=== PATIENT | female | born 1955 | race Caucasian/White ===

== ENCOUNTER 2017-12-25 16:30 | Outpatient (REF) | payer BC, SELFPAY ==
[2017-12-25 19:35] LABS: Anion Gap 8.3 mmol/L (3-11); BUN 11 mg/dL (7-18); CO2 30.7 mmol/L (21.0-32.0); CREATININE 0.66 mg/dL (0.55-1.02); Calcium 9.7 mg/dL (8.5-10.1); Chloride 100 mmol/L (98-107); Glucose 106 mg/dL (70-100); Sodium 139 mmol/L (136-145); TSH 4.41 uIU/mL (0.358-3.74)
== END 2017-12-25 16:50 ==
LOC: NCHCN 16:30
PROVIDERS: PCP Internal Medicine; Visit Provider Internal Medicine
DX: E04.2 Nontoxic multinodular goiter (principal); I10 Essential (primary) hypertension; E03.9 Hypothyroidism, unspecified; E11.9 Type 2 diabetes mellitus without complications; E66.9 Obesity, unspecified
CPT/HCPCS: 80048; 84443

== ENCOUNTER 2018-10-28 15:14 | Outpatient (REF) | payer BC, SELFPAY ==
--- NOTE | 2018-10-28 15:00 | PAPFT_PTH ---
PATIENT: Amanda Chavez LOC: [facility]#:[id number] AGE/SX: 63/F ROOM: RE10/28/[address]: Darin Kathleen : 1955 BED: DIS: 10/28/2018 SPEC #: [id number] RECD: 10/29/18 12:48 STATUS: SUZANNE CARSON #: [id number] AP: 10/28/18 15:[address]: Darin Kathleen DEPT: [facility] Cytology RECD BY: Lennie Redd Tissues: 1 - CX/ENDOCX FOR PAP SMEARS Procedures: PAP THIN PREP/[facility] Screening HPV DNA PROBE Comments: [id number]
== END 2018-10-28 15:34 ==
LOC: NCHCN 15:14
PROVIDERS: PCP Internal Medicine; Visit Provider Internal Medicine
DX: Z12.4 Encounter for screening for malignant neoplasm of cervix (principal); Z11.51 Encounter for screening for human papillomavirus (HPV); Z01.419 Encounter for gynecological examination (general) (routine) without abnormal findings
CPT/HCPCS: 88142; 87624

== ENCOUNTER 2019-03-12 08:49 | Outpatient (REF) | payer BC, SELFPAY ==
[2019-03-12 19:28] LABS: Abs Immature Grans 0.05 k/cumm (0.0-0.09); Absolute Basophil Count 0.05 k/cumm (0.0-0.2); Absolute Eosinophil Count 0.14 k/cumm (0.0-0.7); Absolute Lymphocyte Count 3.28 k/cumm (1.2-3.4); Absolute Monocyte Count 0.83 k/cumm (0.11-0.7); Absolute Neutrophil Count 7.18 k/cumm (1.2-6.7); Basophils % 0.4; Eosinophils % 1.2; HCT 46.5 % (36.0-46.0); HGB 15.7 g/dL (12.0-15.5); Immature Grans % 0.4; Lymphocytes % 28.5; Mean Corp. HGB Concentration 33.8 g/dL (32.0-36.0); Mean Corpuscular Hemoglobin 33.4 pg (27.0-33.0); Mean Corpuscular Volume 98.9 fL (80-95); Mean Platelet Volume 10.9 fL (8.0-11.0); Monocytes % 7.2; Neutrophils % 62.3; Platelet Count 290 x1000/uL (130-400); White Blood Cell Count 11.52 k/cumm (4.4-10.8)
[2019-03-12 19:46] LABS: Iron 101 ug/dL (50-170)
[2019-03-12 20:09] LABS: ESR 23 mm/hr (0-30)
[2019-03-12 20:16] LABS: ALT 27 U/L (14-59); AST 16 U/L (15-37); Alkaline Phosphatase 114 U/L (46-116); Anion Gap 11.6 mmol/L (3-11); BUN 13 mg/dL (7-18); Bilirubin, Total 0.4 mg/dL (0.2-1.0); CO2 27.4 mmol/L (21.0-32.0); CREATININE 0.75 mg/dL (0.55-1.02); Calcium 9.6 mg/dL (8.5-10.1); Chloride 99 mmol/L (98-107); Ferritin 131 ng/mL (8-252); Glucose 100 mg/dL (74-106); Magnesium 1.8 mg/dL (1.8-2.4); Potassium 4.2 mmol/L (3.5-5.1); Sodium 138 mmol/L (136-145); TSH (W/Ref FT4) 3.21 uIU/mL (0.36-3.74); Total Protein 7.7 g/dL (6.4-8.2)
[2019-03-16 10:27] LABS: Vitamin B12 445 pg/mL (211-911)
== END 2019-03-12 09:09 ==
LOC: NCHCN 08:49
PROVIDERS: PCP Internal Medicine; Visit Provider Physician Assistant
DX: I10 Essential (primary) hypertension (principal); E03.9 Hypothyroidism, unspecified; M62.81 Muscle weakness (generalized); M62.838 Other muscle spasm; D75.89 Other specified diseases of blood and blood-forming organs
CPT/HCPCS: 80053; 85652; 82607; 82728; 83540; 83735; 84443; 85025

== ENCOUNTER 2019-04-28 17:38 | Outpatient (REF) | payer BC, SELFPAY ==
[2019-04-28 20:44] LABS: COMMENT (LAB VIEW ONLY) 16.56 mg/dL
== END 2019-04-28 17:58 ==
LOC: NCHCN 17:38
PROVIDERS: PCP Internal Medicine; Visit Provider Internal Medicine
DX: E04.0 Nontoxic diffuse goiter (principal); E11.9 Type 2 diabetes mellitus without complications; I10 Essential (primary) hypertension; M16.11 Unilateral primary osteoarthritis, right hip; E66.9 Obesity, unspecified
CPT/HCPCS: 82043; 82570

== ENCOUNTER 2020-03-08 17:50 | Outpatient (REF) | payer BC, SELFPAY ==
[2020-03-08 20:54] LABS: ALT 33 U/L (14-59); Anion Gap 7.9 mmol/L (3-11); BUN 12 mg/dL (7-18); CO2 29.1 mmol/L (21.0-32.0); CREATININE 0.89 mg/dL (0.55-1.02); Calcium 9.5 mg/dL (8.5-10.1); Chloride 100 mmol/L (98-107); Glucose 135 mg/dL (74-106); LDL CHOLESTEROL 71 mg/dL (<100); Potassium 4.1 mmol/L (3.5-5.1); Sodium 137 mmol/L (136-145); TSH 7.36 uIU/mL (0.36-3.74)
== END 2020-03-08 18:10 ==
LOC: NCHCN 17:50
PROVIDERS: PCP Internal Medicine; Visit Provider Internal Medicine
DX: D12.6 Benign neoplasm of colon, unspecified (principal); Z00.00 Encounter for general adult medical examination without abnormal findings; E11.9 Type 2 diabetes mellitus without complications; E03.9 Hypothyroidism, unspecified
CPT/HCPCS: 80048; 83721; 84443; 84460

== ENCOUNTER 2020-09-11 18:24 | Outpatient (REF) | payer BC, SELFPAY ==
[2020-09-11 18:34] LABS: COMMENT (LAB VIEW ONLY) 24.32 mg/dL; Microalb ug/mg Crea 5.3 ug/mg Cr
== END 2020-09-11 18:25 | disposition home or self-care (01) ==
LOC: NCHCN 18:24
PROVIDERS: PCP Internal Medicine; Visit Provider Internal Medicine
DX: I10 Essential (primary) hypertension (principal); E11.9 Type 2 diabetes mellitus without complications; E66.9 Obesity, unspecified
CPT/HCPCS: 82043; 82570

== ENCOUNTER 2021-07-19 17:02 | Outpatient (REF) | payer BC, SELFPAY ==
[2021-07-19 21:35] LABS: ALT 32 U/L (14-59); Anion Gap 11.8 mmol/L (3-11); BUN 13 mg/dL (7-18); CO2 27.2 mmol/L (21.0-32.0); CREATININE 0.6 mg/dL (0.55-1.02); Calcium 9.6 mg/dL (8.5-10.1); Calculated LDL 86 mg/dL (<100); Chloride 98 mmol/L (98-107); Cholesterol 153 mg/dL (<200); Glucose 79 mg/dL (74-106); HDL Cholesterol 38 mg/dL (40-60); Potassium 4.1 mmol/L (3.5-5.1); Sodium 137 mmol/L (136-145); Triglyceride 146 mg/dL (<150)
== END 2021-07-19 17:03 | disposition home or self-care (01) ==
LOC: NCHCN 17:02
PROVIDERS: PCP Internal Medicine; Visit Provider Internal Medicine
DX: Z00.00 Encounter for general adult medical examination without abnormal findings (principal); E11.9 Type 2 diabetes mellitus without complications
CPT/HCPCS: 80048; 80061; 84460

== ENCOUNTER 2021-10-29 17:57 | Outpatient (REF) | payer MEDICARE, SELFPAY ==
[2021-10-29 19:25] LABS: Abs Immature Grans 0.03 10^3/uL (0.0-0.06); Absolute Basophil Count 0.07 10^3/uL (0.0-0.2); Absolute Eosinophil Count 0.21 10^3/uL (0.0-0.7); Absolute Lymphocyte Count 3.29 10^3/uL (1.2-3.4); Absolute Monocyte Count 0.73 10^3/uL (0.1-0.8); Absolute Neutrophil Count 5.62 10^3/uL (1.2-6.7); Basophils % 0.7; Eosinophils % 2.1; HCT 43.4 % (36.0-46.0); HGB 15.1 g/dL (11.2-15.7); Immature Grans % 0.3; Lymphocytes % 33.1; MCH 33.6 pg (27.0-33.0); MCHC 34.8 % (32.0-36.0); MCV 96 fL (80-95); MPV 11.4 fL (8.0-11.0); Monocytes % 7.3; Neutrophils % 56.5; Platelet Count 252 10^3/uL (130-400); RDW 11.9 % (11.7-14.6); RDW-SD 42.5 fL; WBC 9.95 10^3/uL (4.4-10.8)
[2021-10-29 19:37] LABS: C-Reactive Protein 0.08 mg/dL (0.0-0.3); Uric Acid 5.7 mg/dL (2.6-6.0)
[2021-10-31 10:49] LABS: Lyme Ab w Rflx to Lyme Confirm Negative (Negative)
== END 2021-10-29 17:58 | disposition home or self-care (01) ==
LOC: NCHCN 17:57
PROVIDERS: PCP Internal Medicine; Visit Provider Internal Medicine
DX: E11.9 Type 2 diabetes mellitus without complications (principal); M17.11 Unilateral primary osteoarthritis, right knee
CPT/HCPCS: 84550; 85025; 86140; 86618

== ENCOUNTER 2022-10-24 15:02 | Outpatient (REF) | payer MEDICARE, SELFPAY ==
[2022-10-24 19:11] LABS: HCT 46.3 % (36.0-46.0); HGB 15.8 g/dL (11.2-15.7); MCH 33.5 pg (27.0-33.0); MCHC 34.1 % (32.0-36.0); MCV 98 fL (80-95); MPV 11.7 fL (8.0-11.0); Platelet Count 240 10^3/uL (130-400); RBC 4.71 10^6/uL (3.93-5.22); RDW 12.1 % (11.7-14.6); RDW-SD 44.1 fL; WBC 13.11 10^3/uL (4.4-10.8)
[2022-10-24 19:28] LABS: ALT 20 U/L (14-59); Anion Gap 10.9 mmol/L (3-11); BUN 11 mg/dL (7-18); CO2 26.1 mmol/L (21.0-32.0); CREATININE 0.7 mg/dL (0.55-1.02); Calcium 9.6 mg/dL (8.5-10.1); Chloride 99 mmol/L (98-107); Creatine Kinase 120 U/L (26-192); Estimated GFR 94.73 (mL/min/1.73m2); Glucose 105 mg/dL (74-106); Sodium 136 mmol/L (136-145); TSH 1.18 uIU/mL (0.36-3.74)
[2022-10-24 19:42] LABS: Calculated LDL 63 mg/dL (<100); Cholesterol 134 mg/dL (<200); HDL Cholesterol 41 mg/dL (40-60); Triglyceride 153 mg/dL (<150)
== END 2022-10-24 15:03 | disposition home or self-care (01) ==
LOC: NCHCN 15:02
PROVIDERS: PCP Internal Medicine; Visit Provider Internal Medicine
DX: E03.9 Hypothyroidism, unspecified (principal); I48.91 Unspecified atrial fibrillation; I10 Essential (primary) hypertension; Z79.01 Long term (current) use of anticoagulants
CPT/HCPCS: 80048; 80061; 82550; 85027; 84443; 84460

== ENCOUNTER 2023-11-17 22:38 | Outpatient (REF) | payer MEDICARE, SELFPAY ==
[2023-11-17 19:11] LABS: ALT 28 U/L (14-59); AST 18 U/L (15-37); Albumin 3.6 g/dL (3.4-5.0); Alkaline Phosphatase 116 U/L (46-116); Anion Gap 9.1 mmol/L (3-11); BUN 10 mg/dL (7-18); Bilirubin, Total 0.43 mg/dL (0.2-1.0); CO2 28.9 mmol/L (21.0-32.0); CREATININE 0.8 mg/dL (0.55-1.02); Calcium 9.8 mg/dL (8.5-10.1); Calculated LDL 57 mg/dL (<100); Chloride 99 mmol/L (98-107); Cholesterol 134 mg/dL (<200); Estimated GFR 80.21 (mL/min/1.73m2); Glucose 108 mg/dL (74-106); HDL Cholesterol 44 mg/dL (40-60); Sodium 137 mmol/L (136-145); Total Protein 7.4 g/dL (6.4-8.2); Triglyceride 168 mg/dL (<150)
== END 2023-11-17 22:39 | disposition home or self-care (01) ==
LOC: NCHCN 22:38
PROVIDERS: PCP Internal Medicine; Visit Provider Internal Medicine
DX: I10 Essential (primary) hypertension (principal)
CPT/HCPCS: 80053; 80061

== ENCOUNTER 2024-02-23 15:35 | Outpatient (REF) | payer MEDICARE, SELFPAY ==
[2024-02-23 19:46] LABS: TSH 1.93 uIU/mL (0.36-3.74)
== END 2024-02-23 15:36 | disposition home or self-care (01) ==
LOC: NCHCN 15:35
PROVIDERS: PCP Internal Medicine; Visit Provider Internal Medicine
DX: E03.9 Hypothyroidism, unspecified (principal)
CPT/HCPCS: 84443